=== PATIENT | female | born 1960 | race Two or more races ===

== ENCOUNTER 2018-10-14 08:52 | Outpatient (CLI) | payer OTHER | END 2018-10-14 08:53 | disposition home or self-care (01) | LOC: SONOGRAMA 08:52 → MAMO-SONO 09:15 | DX: E04.8 Other specified nontoxic goiter (principal); E04.1 Nontoxic single thyroid nodule; E03.8 Other specified hypothyroidism ==

== ENCOUNTER → 2018-10-14 | Outpatient (CLI) | payer OTHER | END | disposition home or self-care (01) | LOC: NUCLEAR 10:02 | DX: M81.0 Age-related osteoporosis without current pathological fracture (principal) ==

== ENCOUNTER 2019-02-17 23:16 | Inpatient (IN) | payer OTHER ==
[~2019-02-17] VITALS: Ht 165.1 cm; Wt 97.1 kg
[2019-02-18] MEDS ORDERED: [UNRECOGNIZED DRUG - OTHER] (00:12)
[2019-02-20] MEDS ORDERED: ALENDRONATE SOD70 MG PO (07:58)
[2019-02-20] MEDS ORDERED: SYMBICORT 16010.2 GM IH (07:58)
[2019-02-20] MEDS ORDERED: RAMIPRIL5 MG PO (07:58)
[2019-02-20] MEDS ORDERED: ANASTROZOLE1 MG PO (07:58)
[2019-02-20] MEDS ORDERED: RANITIDINE HCL300 MG PO (07:59)
== END 2019-02-21 11:43 | disposition designated cancer center or children's hospital (05) | DRG 281 ==
LOC: ER 23:16 → MEDJ 02-18 12:46
PROVIDERS: ADMIT Internal Medicine
PROC: B54DZZZ Ultrasonography of Bilateral Lower Extremity Veins (ICD-10-PCS; principal; 2019-02-18)
PROC: 4A12X4Z Monitoring of Cardiac Electrical Activity, External Approach (ICD-10-PCS; 2019-02-18)
PROC: 3E0F7GC Introduction of Other Therapeutic Substance into Respiratory Tract, Via Natural or Artificial Opening (ICD-10-PCS; 2019-02-18)
PROC: BB24Y0Z Computerized Tomography (CT Scan) of Bilateral Lungs using Other Contrast, Unenhanced and Enhanced (ICD-10-PCS; 2019-02-20)
DX: I21.4 Non-ST elevation (NSTEMI) myocardial infarction (principal); J90 Pleural effusion, not elsewhere classified; I11.9 Hypertensive heart disease without heart failure; E03.8 Other specified hypothyroidism; I95.9 Hypotension, unspecified; Z79.01 Long term (current) use of anticoagulants

== ENCOUNTER 2019-08-26 08:27 | Outpatient (CLI) | payer OTHER ==
[~2019-08-26 08:27] MED LIST: AFRIN15 ML NASAL; ALENDRONATE SOD70 MG PO; ALTACE5 MG PO; AMOX-CLAV 875-1 EACH PO; AMOX1TAB12 PO; ANASTROZOLE1 MG PO; ARIMIDEX PO; FLONASE16 GM NASAL; FLONASE16 GM NS; FOSAMAX70 MG PO; NEILMED SINUS1 EAC1 NASAL; RAMIPRIL5 MG PO; RANITIDINE HCL300 MG PO; RESTORA CAPSUL1 EACH PO; SYMBICORT 16010.2 GM IH; SYNTHROID137 MCG PO; ULTRACET PO; ZANTAC300 MG PO; ZITHROMAX500 MG PO; [UNRECOGNIZED DRUG - OTHER]
== END 2019-08-26 08:34 | disposition home or self-care (01) ==
LOC: SONOGRAMA 08:27 → MAMO-SONO 08:45
DX: R10.84 Generalized abdominal pain (principal)

== ENCOUNTER 2019-09-04 07:37 | Outpatient (CLI) | payer OTHER | END 2019-09-04 07:41 | disposition home or self-care (01) | LOC: NUCLEAR 07:37 | DX: C50.412 Malignant neoplasm of upper-outer quadrant of left female breast (principal); C78.7 Secondary malignant neoplasm of liver and intrahepatic bile duct | CPT/HCPCS: 78815; A9552 ==

== ENCOUNTER 2019-10-18 11:07 | Outpatient (CLI) | payer OTHER | END 2019-10-18 11:23 | disposition home or self-care (01) | LOC: RAD 11:07 | DX: C78.7 Secondary malignant neoplasm of liver and intrahepatic bile duct (principal); I10 Essential (primary) hypertension ==

== ENCOUNTER 2019-10-18 15:30 | Inpatient (IN) | payer OTHER ==
[~2019-10-18] VITALS: Ht 167.6 cm; Wt 90.7 kg
[2019-10-25] MEDS ORDERED: AMLODIPINE BESYL5 MG PO (08:30)
[2019-10-25] MEDS ORDERED: FENTANYL1 EAC3 TD (08:30)
[2019-10-25] MEDS ORDERED: RANITIDINE HCL300 MG PO (08:30)
== END 2019-10-25 17:13 | disposition home or self-care (01) | DRG 597 ==
LOC: MEDJ 15:30
PROVIDERS: ADMIT Internal Medicine Hematology & Oncology
PROC: 02HV33Z Insertion of Infusion Device into Superior Vena Cava, Percutaneous Approach (ICD-10-PCS; principal; 2019-10-19)
PROC: B54DZZZ Ultrasonography of Bilateral Lower Extremity Veins (ICD-10-PCS; 2019-10-20)
PROC: 05H633Z Insertion of Infusion Device into Left Subclavian Vein, Percutaneous Approach (ICD-10-PCS; 2019-10-24)
DX: C50.411 Malignant neoplasm of upper-outer quadrant of right female breast (principal); K72.00 Acute and subacute hepatic failure without coma; I21.4 Non-ST elevation (NSTEMI) myocardial infarction; C78.7 Secondary malignant neoplasm of liver and intrahepatic bile duct; N17.8 Other acute kidney failure; Z17.0 Estrogen receptor positive status [ER+]; K21.9 Gastro-esophageal reflux disease without esophagitis